=== PATIENT | male | born 1960 | race Caucasian/White ===

== ENCOUNTER → 2022-06-02 | Outpatient (CLI) | payer OTHER | LOC: COL.RAD 11:09 | DX: E04.2 Nontoxic multinodular goiter (principal) ==

== ENCOUNTER 2024-08-22 12:59 | Day surgery (SDC) | payer OTHER ==
[2024-08-22] VITALS (11 sets, daily range): BP systolic 117–150; BP diastolic 61–80; PULSE 59–89; TEMP 97.6–98.5
[~2024-08-22] VITALS: Ht 190.5 cm; Wt 116.4 kg
[~2024-08-22 12:59] MED LIST: LR 1,000 ML IV SCH
[2024-08-22] MEDS ORDERED: PRINIVIL20 MG PO (13:54)
[2024-08-22] MEDS ORDERED: CRESTOR20 MG PO (13:55)
[2024-08-22] MEDS ORDERED: MASON NATURAL2000 IU PO (13:55)
[2024-08-22] MEDS ORDERED: PROFERRIN ES12 MG PO (13:56)
[2024-08-22] MEDS ORDERED: ASPIRIN 81M81 MG/TA2 PO (13:56)
[2024-08-22] MEDS ORDERED: Ondansetron 4 MG/2 ML VIAL IV PRN ×2 (14:45→16:00)
[2024-08-22] MEDS ORDERED: hydrALAZINE 20 MG/ML 1 ML VIAL IV PRN (14:45)
[2024-08-22] MEDS ORDERED: HYDROmorphone 1 MG/1 ML SYRINGE [PACU/SDC ONLY] IV PRN (14:45)
[2024-08-22] MEDS ORDERED: fentaNYL 50 MCG/ML 1 ML SYRINGE/VIAL [PACU/SDC ONLY] IV PRN (14:45)
[2024-08-22] MEDS ORDERED: droPERidol 2.5 MG/ML 2 ML VIAL IV PRN (14:45)
[2024-08-22] MEDS ORDERED: fentaNYL 50 MCG/ML 2 ML VIAL ONE (14:59)
[2024-08-22] MEDS ORDERED: NS 10 ML IV ONE (15:00)
[2024-08-22] MEDS ORDERED: Lidocaine PF 2% (20 MG/ML) 5 ML VIAL ONE (15:00)
[2024-08-22] MEDS ORDERED: dexAMETHasone 10 MG/ML VIAL ONE (15:00)
[2024-08-22] MEDS ORDERED: Glycopyrrolate 0.2 MG/ML 1 ML VIAL ONE (15:00)
[2024-08-22] MEDS ORDERED: Ondansetron 4 MG/2 ML VIAL ONE (15:00)
[2024-08-22] MEDS ORDERED: Hyoscyamine 0.125 MG Sublingual TAB SL PRN (16:00)
[2024-08-22] MEDS ORDERED: 1/2 NS & 20 mEq KCl 1,000 ML IV SCH (16:00)
[2024-08-22] MEDS ORDERED: Naloxone 0.4 MG/ML VIAL IV PRN (16:00)
[2024-08-22] MEDS ORDERED: NS Irrig Soln 3000 ML SOLN IR PRN (16:00)
[2024-08-22] MEDS ORDERED: Magnes Hydrox (MOM) 80 MG/ML 30 ML CUP PO PRN (16:00)
[2024-08-22] MEDS ORDERED: Iohexol 350 - 100 ML VIAL URETER-B ONE (16:08)
[2024-08-22] MEDS ORDERED: Lidocaine 2% (20 MG/ML) 20 ML UROJET UR ONE ×2 (16:08)
--- NOTE | 2024-08-22 17:55 | NUR ---
PATIENT ADMITTED INTO ROOM 346 POSTOP. A&O. DURING HAND-OFF FROM PACU TO BEDSIDE RN, PATIENT PUT IN A DIP OF CHEW. PACU NURSE INSTRUCTED PATIENT ABOUT OUR HOSPITAL POLICY, TOBACCO FREE. PATIENT JUST LOOKED AT BENEFITS MANAGER BUT WOULDN'T TAKE IT OUT. BEDSIDE NURSE AGAIN EDUCATED AND FAMILY SUPPORTED STAFF SAYING, WE TOLD YOU. PATIENT THEN PULLED OUT HIS BOTTOM LIP AND SAID, I DONT HAVE IT. NURSE ASKED TO SEE HIS TOP LIP AND HE SMILED AND SAID NO. PATIENT DID FINALLY SPIT IT OUT AND NURSES ASKED FAMILY TO TAKE THE CHEW HOME WITH THEM. VSS. NO OTHER COMPLAINTS. REPORTS HE IS HUNGRY. WATER & JELLO AT BEDSIDE. PATIENT SHOWN HOW TO ORDER SUPPER. TURPIN TO DD WITH CBI INFUSING AT MOD RATE. URINE ID RED WITH A FEW CLOTS NOTED. IV FLUIDS INFUSING INTO RIGHT HAND IV. HEAD TO TOE ASSESSMENT COMPLETE. ORIENTED TO ROOM. CALL LIGHT IN REACH.
[2024-08-22] MEDS ORDERED: Atorvastatin 40 MG TAB PO SCH (21:00)
[2024-08-22] MEDS ORDERED: Rosuvastatin 20 MG **** subs to Atorvastatin 40 MG PO SCH (21:00)
[2024-08-22] MEDS ORDERED: Melatonin 3 MG TAB PO PRN (21:00)
[2024-08-23 04:12] VITALS: BP 128/73; PULSE 71; TEMP 97.6
[2024-08-23 04:15] VITALS: BP_SYST 128
--- NOTE | 2024-08-23 07:00 | NUR ---
Pt doing okay at shift change. Pt appears to be short with conversation, almost as if he is angry. He is upset that he does not have breakfast yet, but states he has ordered it. Informed him that he could go ahead and order lunch that way he does not have to "wait" on it and it could be delivered about the time he wants it. He stated he would just order pizza to be delivered. No other needs at this time, gave him fresh ice water. Call light within reach
[2024-08-23 07:35] VITALS: BP 120/66; PULSE 62; TEMP 97.5
--- NOTE | 2024-08-23 08:20 | NUR ---
Dr Murphy has been in to see pt. New orders wrote to remove moreland catheter. Prime and pulled catheter, pt tolerated well. Educated pt on using the urinal and notifying staff each time he voids so that we can monitor his output. Pt asks questions and then after I answer then, he says in a sharp tone "that's fine, I'm just asking." While I was educating him on what it entails to remove the moreland pt asked for me to remove his black bag from the closet which I did. He looked in his bag and pulled out something black that appeared to be a knife in a sheath. He held it up and stated, "just in case you hurt me too bad." Then chuckled and placed in back in his bag. He asked me to put it next to him, but I placed it back in the closet. I did put on his bed alarm so that it would notify us when he gets up. I did call security to take down what I thought was a knife. Security and myself went in the room and I made the statement that I was going to have security lock up his knife. Pt became aggitated stating that it wasn't a knife. I did remove it from his bag and it was a metal tool of some sort. I still just stated that it was used as a weapon being threatening and for safety we are going to lock it up. Pt stated, "if you think that is a weapon, I'm the real weapon" and gave a threatening look. I did leave the bed alarm on and informed him to notify nursing if he needs anything, call light is within reach, and then walked out of the room with security
[2024-08-23 08:33] VITALS: BP_SYST 120
[2024-08-23] MEDS ORDERED: Lisinopril 20 MG TAB PO SCH (09:00)
--- NOTE | 2024-08-23 11:00 | NUR ---
Pt has voided x6, no clots seen. Output is pink in color. Pt not having any troubles with voiding. Will plan on discharging patient, patient calling his ride
[2024-08-23 11:20] VITALS: BP 141/72; PULSE 62; TEMP 97.7
--- NOTE | 2024-08-23 11:42 | NUR ---
SW met with patient to complete initial assessment for discharge planning. Patient verified that he lives in [place], he lists his daughter Aleida ([phone]) and his friend Elaine ([phone]) as his emergency contacts. Patient denies having completed a DPOA. Patient sees Dr. Karena Pal as his PCP and uses [facility] pharmacy in [place] without difficulty. Patient states he has a walker, wheelchair and cane at home. Patient reports to be active and independent and anticipates no needs to return home. Discharge plan: Home
--- NOTE | 2024-08-23 12:00 | NUR ---
Reviewed discharge instructions with pt. Pts ride is on her way, stated would be here shortly. I did call security to bring the item I had locked up. Security is going to meet at outside [facility] entrance when pt is escorted out. INT removed by student nurse. Pt has no complaints of pain at this time.
== END 2024-08-23 12:10 | disposition home or self-care (01) ==
LOC: SDCO 12:59 → SURG 17:10 → SDCO 08-23 12:10
DX: C67.9 Malignant neoplasm of bladder, unspecified (principal); D09.0 Carcinoma in situ of bladder; I10 Essential (primary) hypertension; Z79.899 Other long term (current) drug therapy; F17.290 Nicotine dependence, other tobacco product, uncomplicated
CPT/HCPCS: OP; J0690; J1100; J2405; J2704; J3010; J3480; J7120; Q9967